=== PATIENT | female | born 1950 | race Caucasian/White ===

== ENCOUNTER 2017-04-19 20:07 | Emergency (ER) | payer MEDICARE, OTHER ==
[~2017-04-19] VITALS: Ht 157.5 cm; Wt 70.0 kg
[~2017-04-19 20:07] MED LIST: ATOR20TA42 PO; CLON.1 PO; LEVE250 PO; LEVEMIR SQ; LISI20 PO; LITH300 PO; LORTA5 PO; NOVOLOGSS SQ; QUET25 PO
[2017-04-19 20:31] VITALS: BP 198/90; PULSE 68; RESP 15; TEMP 98; O2SAT 100
[2017-04-19 20:45] VITALS: BP 222/89; PULSE 75; RESP 18; O2SAT 98
[2017-04-19] MEDS ORDERED: SODIUM CHLORIDE 0.9% FLUSH 5 ML FLUSH IV FLUSH PRN (20:45)
--- NOTE | 2017-04-19 20:52 | PD ---
HPI Chief Complaint: Fall Time Seen by Provider: 20:39 Travel History International Travel<30 days: No Contact w/Intl Traveler<30days: No History of Present Illness HPI Patient is a 66-year-old female presenting to the emergency department for evaluation after being found on the floor by her family. Patient is reporting a headache and pain in the back of her head. She denies any other complaints however she reportedly has the mentation of a 14-year-old per EMS. Patient does not remember if she fell or how she got on the floor. She denies any neck pain, back pain, abdominal pain, chest pain. She states that "she doesn't feel good". PFSH Past Medical History Bipolar Disorder: Yes Cancer: No Diabetes: Yes Diminished Hearing: No Gastrointestinal Disorders: No Genitourinary: No Headaches: No Hypertension: Yes Musculoskeletal: No Neurologic: Yes Psychiatric: Yes (BiPolar Disorder) Reproductive: No Respiratory: No Immunizations Current: Yes (unknown) Migraines: Yes Seizures: Yes Past Surgical History Tonsillectomy: Yes Other Surgery: Yes (SPINAL SURGERY 12 YEARS AGO) Social History Alcohol Use: No Tobacco Use: No Substance Use: No Allergies-Medications (Allergen,Severity, Reaction): Coded Allergies: Aspirin (Verified Allergy, Unknown, 02/02/16) Nonsteroidal Anti-Inflammatory Agts (Verified Allergy, Unknown, Rash, 02/01) MRI PRECAUTION (Verified Adverse Reaction, Severe, ANEURYSM CLIPS IN BRAIN , 02/02/16) 08/10/15 JLA Reported Meds & Prescriptions Reported Meds & Active Scripts Active Prinivil 20 mg (Lisinopril) 20 Mg Tab 20 Mg PO Q12HR Novolog Insulin Supplemental Scale (Insulin Aspart) 100 /Ml Inj 1 Units SQ ACHS SLIDING SCALE 30 Days Levemir (Insulin Detemir) 100 Units/Ml Inj 10 Units SQ HS 30 Days Hydrocodone/Acetaminophen 5 mg/325 mg 1 Tab Tab 1 Tab PO Q6H PRN Lipitor 20 Mg Tab (Atorvastatin) 20 Mg Tab 20 Mg PO HS Reported Quetiapine Fumarate 25 Mg Tab 50 Mg PO HS Catapres 0.1 mg (Clonidine HCl) 0.1 Mg Tab 1 Tab PO BID Keppra (Levetiracetam) 250 Mg Tab 500 Mg PO BID Halbur Carbonate Er (Halbur Carbonate) 300 Mg Tab 300 Mg PO DAILY Review of Systems ROS Limitations: Poor Historian Except as stated in HPI: all other systems reviewed are Neg HENT: Positive: Headaches Physical Exam Narrative GENERAL: Well-developed, well-nourished, alert female. Resting comfortably in no acute distress. SKIN: Warm and dry. HEAD: Atraumatic. Normocephalic. No obvious lesions or abrasions, there is tenderness to palpation over the occipital area EYES: Pupils equal and round. No scleral icterus. No injection or drainage. ENT: No nasal bleeding or discharge. Mucous membranes pink and moist. NECK: Trachea midline. No JVD. CARDIOVASCULAR: Regular rate and rhythm. RESPIRATORY: No accessory muscle use. Clear to auscultation. Breath sounds equal bilaterally. GASTROINTESTINAL: Abdomen soft, non-tender, nondistended. Hepatic and splenic margins not palpable. MUSCULOSKELETAL: Extremities without clubbing, cyanosis, or edema. No obvious deformities. NEUROLOGICAL: Awake and alert. No obvious cranial nerve deficits. Motor grossly within normal limits. Five out of 5 muscle strength in the arms and legs. Normal speech. PSYCHIATRIC: Appropriate mood and affect; insight and judgment impaired. Data Data Last Documented VS Vital Signs Date Time Temp Pulse Resp B/P Pulse Ox O2 Delivery O2 Flow Rate FiO2 04/19/17 21:02 65 20 164/80 98 Room Air 04/19/17 20:31 98.0 Orders Electrocardiogram (04/19/17 20:36) Complete Blood Count With Diff (04/19/17 20:36) Comprehensive Metabolic Panel (04/19/17 20:36) Prothrombin Time / Inr (Pt) (04/19/17 20:36) Act Partial Throm Time (Ptt) (04/19/17 20:36) Urinalysis - C+S If Indicated (04/19/17 20:36) Ct Brain W/O Iv Contrast(Rout) (04/19/17 20:36) Blood Glucose (04/19/17 20:36) Ecg Monitoring (04/19/17 20:36) Iv Access Insert/Monitor (04/19/17 20:36) Cath For Specimen (04/19/17 20:36) Oximetry (04/19/17 20:36) Sodium Chloride 0.9% Flush (Ns Flush) (04/19/17 20:45) Acetaminophen (Tylenol) (04/19/17 22:15) Sodium Chlor 0.9% 1000 Ml Inj (Ns 1000 M (04/19/17 22:30) Labs Laboratory Tests Test 04/19/17 04/19/17 20:45 20:50 White Blood Count 9.2 TH/MM3 Red Blood Count 3.86 MIL/MM3 Hemoglobin 11.9 GM/DL Hematocrit 34.4 % Mean Corpuscular Volume 89.3 FL Mean Corpuscular Hemoglobin 30.9 PG Mean Corpuscular Hemoglobin 34.6 % Concent Red Cell Distribution Width 13.1 % Platelet Count 278 TH/MM3 Mean Platelet Volume 9.3 FL Neutrophils (%) (Auto) 43.3 % Lymphocytes (%) (Auto) 45.2 % Monocytes (%) (Auto) 6.1 % Eosinophils (%) (Auto) 4.0 % Basophils (%) (Auto) 1.4 % Neutrophils # (Auto) 4.0 TH/MM3 Lymphocytes # (Auto) 4.2 TH/MM3 Monocytes # (Auto) 0.6 TH/MM3 Eosinophils # (Auto) 0.4 TH/MM3 Basophils # (Auto) 0.1 TH/MM3 CBC Comment DIFF FINAL Differential Comment Prothrombin Time 10.3 SEC Prothromb Time International 0.9 RATIO Ratio Activated Partial 27.5 SEC Thromboplast Time Sodium Level 138 MEQ/L Potassium Level 4.0 MEQ/L Chloride Level 104 MEQ/L Carbon Dioxide Level 24.2 MEQ/L Anion Gap 10 MEQ/L Blood Urea Nitrogen 29 MG/DL Creatinine 1.16 MG/DL Estimat Glomerular Filtration 47 ML/MIN Rate Random Glucose 117 MG/DL Calcium Level 9.3 MG/DL Total Bilirubin 0.5 MG/DL Aspartate Amino Transf 23 U/L (AST/SGOT) Alanine Aminotransferase 18 U/L (ALT/SGPT) Alkaline Phosphatase 106 U/L Total Protein 8.8 GM/DL Albumin 4.0 GM/DL Urine Color YELLOW Urine Turbidity CLEAR Urine pH 5.5 Urine Specific [place] 1.020 Urine Protein TRACE mg/dL Urine Glucose (UA) NEG mg/dL Urine Ketones 10 mg/dL Urine Occult Blood NEG Urine Nitrite NEG Urine Bilirubin NEG Urine Urobilinogen LESS THAN 2.0 MG/DL Urine Leukocyte Esterase NEG Urine RBC 2 /hpf Urine WBC 2 /hpf Microscopic Urinalysis Comment CATH-CULT NOT IND MDM Medical Decision Making Medical Screen Exam Complete: Yes Emergency Medical Condition: Yes Medical Record Reviewed: Yes Interpretation(s) Last Impressions Head CT 04/19/172035 Signed Impressions: Service Date/Time: Wednesday, April 19, 2017 21:28 - CONCLUSION: No acute findings. Luther Nath MD Laboratory Tests Test 04/19/17 04/19/17 20:45 20:50 White Blood Count 9.2 TH/MM3 Red Blood Count 3.86 MIL/MM3 Hemoglobin 11.9 GM/DL Hematocrit 34.4 % Mean Corpuscular Volume 89.3 FL Mean Corpuscular Hemoglobin 30.9 PG Mean Corpuscular Hemoglobin 34.6 % Concent Red Cell Distribution Width 13.1 % Platelet Count 278 TH/MM3 Mean Platelet Volume 9.3 FL Neutrophils (%) (Auto) 43.3 % Lymphocytes (%) (Auto) 45.2 % Monocytes (%) (Auto) 6.1 % Eosinophils (%) (Auto) 4.0 % Basophils (%) (Auto) 1.4 % Neutrophils # (Auto) 4.0 TH/MM3 Lymphocytes # (Auto) 4.2 TH/MM3 Monocytes # (Auto) 0.6 TH/MM3 Eosinophils # (Auto) 0.4 TH/MM3 Basophils # (Auto) 0.1 TH/MM3 CBC Comment DIFF FINAL Differential Comment Prothrombin Time 10.3 SEC Prothromb Time International 0.9 RATIO Ratio Activated Partial 27.5 SEC Thromboplast Time Sodium Level 138 MEQ/L Potassium Level 4.0 MEQ/L Chloride Level 104 MEQ/L Carbon Dioxide Level 24.2 MEQ/L Anion Gap 10 MEQ/L Blood Urea Nitrogen 29 MG/DL Creatinine 1.16 MG/DL Estimat Glomerular Filtration 47 ML/MIN Rate Random Glucose 117 MG/DL Calcium Level 9.3 MG/DL Total Bilirubin 0.5 MG/DL Aspartate Amino Transf 23 U/L (AST/SGOT) Alanine Aminotransferase 18 U/L (ALT/SGPT) Alkaline Phosphatase 106 U/L Total Protein 8.8 GM/DL Albumin 4.0 GM/DL Urine Color YELLOW Urine Turbidity CLEAR Urine pH 5.5 Urine Specific [place] 1.020 Urine Protein TRACE mg/dL Urine Glucose (UA) NEG mg/dL Urine Ketones 10 mg/dL Urine Occult Blood NEG Urine Nitrite NEG Urine Bilirubin NEG Urine Urobilinogen LESS THAN 2.0 MG/DL Urine Leukocyte Esterase NEG Urine RBC 2 /hpf Urine WBC 2 /hpf Microscopic Urinalysis Comment CATH-CULT NOT IND Vital Signs Date Time Temp Pulse Resp B/P Pulse Ox O2 Delivery O2 Flow Rate FiO2 04/19/17 21:02 65 20 164/80 98 Room Air 04/19/17 20:52 98 Room Air 04/19/17 20:45 75 18 222/89 98 Room Air 04/19/17 20:31 98.0 68 15 198/90 100 Differential Diagnosis UTI versus contusion versus hemorrhage versus metabolic abnormality versus other Narrative Course Patient is a 66-year-old female presenting to the emergency department for evaluation after being found on the floor likely unwitnessed fall. She is complaining of a headache and head pain. She is alert, she appears to be at her baseline mentation. No meningeal signs. Labs and imaging ordered and pending. Initial EKG shows sinus rhythm with a rate of 60 CT of the brain shows no acute abnormality CMP- BUN and creatinine 29/1.16 Coags are unremarkable Urinalysis is unremarkable Acetaminophen ordered for headache, 1 L IV fluids ordered. Pt will be discharged home. She is to follow up with PCP. Pt to return to the ED for any new or worsening symptoms. Discussed with RN. Diagnosis Primary Impression: Fall Qualified Code: W19.XXXA - Fall, initial encounter Additional Impression: Headache Qualified Code: R51 - Nonintractable headache, unspecified chronicity pattern , unspecified headache type Referrals: Primary Care Physician 1 day Patient Instructions: Acute Headache (ED), Fall Prevention (ED), General Instructions Additional Instructions: Increase fluid intake Follow up with primary doctor Return to the Emergency Department for any new or worsening symptoms Med/Other Pt SpecificInfo: No Change to Meds Disposition: 01 DISCHARGE HOME Condition: Stable Reena Avelar Apr 19, 2017 20:52
[2017-04-19 21:02] VITALS: BP 164/80; PULSE 65; RESP 20; O2SAT 98
[2017-04-19 21:02] LABS: BLOOD, URINE NEG (NEG); GLUCOSE,URINE NEG (NEG); KETONE, URINE 10 mg/dL (NEG); NITRITE,URINE NEG (NEG); PH, URINE 5.5 (5.0-8.5); URINE COLOR YELLOW (YELLW/STRAW)
[2017-04-19 21:09] LABS: COMMENT (UR) CATH-CULT NOT IND; CULTURE IF INDICATED CATH CULTURE NOT IND
[2017-04-19 21:11] LABS: BASOPHIL # 0.1 TH/MM3 (0-0.2); BASOPHIL % 1.4 % (0.0-2.0); EOSINOPHIL # 0.4 TH/MM3 (0-0.4); HEMATOCRIT 34.4 % (35.0-46.0); HEMO FLAGS DIFF FINAL; LYMPH % 45.2 % (9.0-44.0); LYMPHOCYTE # 4.2 TH/MM3 (1.0-4.8); MEAN CELL VOLUME 89.3 FL (80.0-100.0); MEAN CORPUSCULAR HEMOGLOBIN 30.9 PG (27.0-34.0); MEAN CORPUSCULAR HGB CONC 34.6 % (32.0-36.0); MONO % 6.1 % (0.0-8.0); NEUT % 43.3 % (16.0-70.0); PLATELET COUNT 278 TH/MM3 (150-450); RED BLOOD COUNT 3.86 MIL/MM3 (4.00-5.30); RED CELL DISTRIBUTION WIDTH 13.1 % (11.6-17.2); WHITE BLOOD COUNT 9.2 TH/MM3 (4.0-11.0)
[2017-04-19 21:18] LABS: APTT (PATIENT) 27.5 SEC (24.3-30.1); INTERNATIONAL NORMALIZED RATIO 0.9 RATIO; PROTHROMBIN TIME - PATIENT 10.3 SEC (9.8-11.6)
[2017-04-19 21:46] LABS: ALKALINE PHOSPHATASE 106 U/L (45-117); TOTAL BILIRUBIN ADULT 0.5 MG/DL (0.2-1.0)
[2017-04-19 21:54] LABS: ALT (GPT) 18 U/L (10-53); ANION GAP 10 MEQ/L (5-15); AST (GOT) 23 U/L (15-37); BICARBONATE 24.2 MEQ/L (21.0-32.0); BLOOD UREA NITROGEN 29 MG/DL (7-18); CHLORIDE 104 MEQ/L (98-107); GLOMERULAR FILTRATION RATE 47 ML/MIN (>89); SODIUM (NA) 138 MEQ/L (136-145)
--- NOTE | 2017-04-19 22:06 | RADRPT ---
EXAM DATE/TIME: 04/19/2017 21:28 [facility] COMPARISON: CT BRAIN W/O CONTRAST, August 10, 2015, 18:25. INDICATIONS : Headaches with alter mental status. RADIATION DOSE: 56.35 CTDIvol (mGy) MEDICAL HISTORY : Hypertension. Aneurysm, intracranial. Epilepsy SURGICAL HISTORY : Craniotomy. ENCOUNTER: Initial ACUITY: 1 day PAIN SCALE: 5/10 LOCATION: cranial TECHNIQUE: Multiple contiguous axial images were obtained of the head. Using automated exposure control and adj ustment of the mA and/or kV according to patient size, radiation dose was kept as low as reasonably a chievable to obtain optimal diagnostic quality images. DICOM format image data is available electro nically for review and comparison. FINDINGS: CEREBRUM: The ventricles are normal for age. No evidence of midline shift, mass lesion, hemorrhage or acute in farction. Stable hypodensity in the left mid convexity frontal region adjacent to the anterior crani otomy defect. No extra-axial fluid collections are seen. The metallic artifact from aneurysm clip in the left supraclinoid region. POSTERIOR FOSSA: The cerebellum and brainstem are intact. The 4th ventricle is midline. The cerebellopontine angle i s unremarkable. EXTRACRANIAL: The visualized portion of the orbits is intact. SKULL: Good approximation of the left craniotomy flap, stable in configuration from prior. CONCLUSION: No acute findings. Luther Nath MD on April 19, 2017 at 22:02 Board Certified Radiologist. This report was verified electronically.
[2017-04-19] MEDS ORDERED: ACETAMINOPHEN 325 MG TAB PO ONE (22:15)
[2017-04-19] MEDS ORDERED: SODIUM CHLOR 0.9% 1000 ML INJ 1,000 ML IV ONE (22:30)
[2017-04-19 22:33] VITALS: BP 134/60; PULSE 63; RESP 16; O2SAT 98
--- NOTE | 2017-04-20 09:15 | EKG ---
Date Performed: 04/19/2017 Time Performed: 21:18:17 PTAGE: 66 years EKG: Sinus rhythm NORMAL ECG PREVIOUS TRACING : 08/10/2015 18.02 DOCTOR: Toby Hernandez Interpretating Date/Time 04/20/2017 09:14:05
== END 2017-04-20 00:25 | disposition home or self-care (01) ==
LOC: NEPE 20:07
DX: R51 Headache (principal); E11.9 Type 2 diabetes mellitus without complications; I10 Essential (primary) hypertension; Z79.4 Long term (current) use of insulin; Z86.59 Personal history of other mental and behavioral disorders; Z86.69 Personal history of other diseases of the nervous system and sense organs; W19.XXXA Unspecified fall, initial encounter
CPT/HCPCS: 70450; 80053; 81001; 85025; 85610; 85730; 93005; 99285; J7030; P9612

== ENCOUNTER 2017-04-30 10:54 | Emergency (ER) | payer OTHER ==
[~2017-04-30] VITALS: Ht 167.6 cm; Wt 70.0 kg
[2017-04-30 11:22] VITALS: BP 121/65; PULSE 65; RESP 16; TEMP 98.2; O2SAT 95
--- NOTE | 2017-04-30 11:31 | PD ---
HPI Chief Complaint: Syncope/Near-Syncope Time Seen by Provider: 11:17 Travel History International Travel<30 days: No Contact w/Intl Traveler<30days: No Traveled to known affect area: No History of Present Illness HPI The patient was seen and examined in the presence of the nurse. This patient was taking her pet to get vaccinated and became dizzy and lightheaded. She lost her balance and fell. No syncope. She denies losing consciousness or having had or neck injury or pain. At this point she feels like some general malaise. No chest pain. Symptoms severity is moderate. No alleviating factors. Duration 10 minutes PFSH Past Medical History Bipolar Disorder: Yes Cancer: No Cardiovascular Problems: Yes Diabetes: Yes Diminished Hearing: No Gastrointestinal Disorders: No Genitourinary: No Headaches: Yes Hypertension: Yes Musculoskeletal: No Neurologic: Yes Psychiatric: Yes (BiPolar Disorder) Reproductive: No Respiratory: No Immunizations Current: Yes (unknown) Migraines: Yes Seizures: Yes Past Surgical History Tonsillectomy: Yes Other Surgery: Yes (SPINAL SURGERY 12 YEARS AGO) Social History Alcohol Use: No Tobacco Use: No Substance Use: No Allergies-Medications (Allergen,Severity, Reaction): Coded Allergies: Aspirin (Verified Allergy, Unknown, 02/02/16) Nonsteroidal Anti-Inflammatory Agts (Verified Allergy, Unknown, Rash, 02/01) MRI PRECAUTION (Verified Adverse Reaction, Severe, ANEURYSM CLIPS IN BRAIN , 02/02/16) 08/10/15 JLA Reported Meds & Prescriptions Reported Meds & Active Scripts Active Prinivil 20 mg (Lisinopril) 20 Mg Tab 20 Mg PO Q12HR Novolog Insulin Supplemental Scale (Insulin Aspart) 100 /Ml Inj 1 Units SQ ACHS SLIDING SCALE 30 Days Levemir (Insulin Detemir) 100 Units/Ml Inj 10 Units SQ HS 30 Days Hydrocodone/Acetaminophen 5 mg/325 mg 1 Tab Tab 1 Tab PO Q6H PRN Lipitor 20 Mg Tab (Atorvastatin) 20 Mg Tab 20 Mg PO HS Reported Quetiapine Fumarate 25 Mg Tab 50 Mg PO HS Catapres 0.1 mg (Clonidine HCl) 0.1 Mg Tab 1 Tab PO BID Keppra (Levetiracetam) 250 Mg Tab 500 Mg PO BID [place] Carbonate Er (Escobares Carbonate) 300 Mg Tab 300 Mg PO DAILY Review of Systems General / Constitutional: No: Fever Eyes: No: Visual changes HENT: Positive: Lightheadedness, No: Headaches Cardiovascular: No: Chest Pain or Discomfort Respiratory: No: Shortness of Breath Gastrointestinal: No: Abdominal Pain Genitourinary: No: Dysuria Musculoskeletal: Positive: Weakness, No: Pain Skin: No Rash Neurologic: Positive: Weakness, Dizziness Psychiatric: No: Depression Endocrine: No: Polydipsia Hematologic/Lymphatic: No: Easy Bruising Physical Exam Narrative GENERAL: Well-nourished, well-developed patient in no apparent distress. SKIN: Focused skin assessment reveals no rash and nodules. Skin is Warm and dry. HEAD: Atraumatic. Normocephalic. EYES: Pupils equal and round. No scleral icterus. No injection or drainage. ENT: No nasal bleeding or discharge. Mucous membranes pink and moist. NECK: Trachea midline. No JVD. CARDIOVASCULAR: Regular rate and rhythm. No murmur appreciated. RESPIRATORY: No accessory muscle use. Clear to auscultation. Breath sounds equal bilaterally. GASTROINTESTINAL: Abdomen soft, non-tender, nondistended. Hepatic and splenic margins not palpable. MUSCULOSKELETAL: No obvious deformities. No clubbing. No cyanosis. No edema. NEUROLOGICAL: Awake and alert. No obvious cranial nerve deficits. Motor grossly within normal limits. Normal speech. PSYCHIATRIC: Appropriate mood and affect; insight and judgment normal. Data Data Last Documented VS Vital Signs Date Time Temp Pulse Resp B/P Pulse Ox O2 Delivery O2 Flow Rate FiO2 04/30/17 11:34 16 98 Room Air 04/30/17 11:22 98.2 65 121/65 Orders Electrocardiogram (04/30/17 ) Iv Access Insert/Monitor (04/30/17 11:28) Complete Blood Count With Diff (04/30/17 11:28) Basic Metabolic Panel (Bmp) (04/30/17 11:28) Labs Laboratory Tests Test 04/30/17 11:30 White Blood Count 7.2 TH/MM3 Red Blood Count 3.59 MIL/MM3 Hemoglobin 11.0 GM/DL Hematocrit 32.9 % Mean Corpuscular Volume 91.6 FL Mean Corpuscular Hemoglobin 30.7 PG Mean Corpuscular Hemoglobin 33.5 % Concent Red Cell Distribution Width 13.2 % Platelet Count 227 TH/MM3 Mean Platelet Volume 9.2 FL Neutrophils (%) (Auto) 53.5 % Lymphocytes (%) (Auto) 34.7 % Monocytes (%) (Auto) 8.2 % Eosinophils (%) (Auto) 2.5 % Basophils (%) (Auto) 1.1 % Neutrophils # (Auto) 3.9 TH/MM3 Lymphocytes # (Auto) 2.5 TH/MM3 Monocytes # (Auto) 0.6 TH/MM3 Eosinophils # (Auto) 0.2 TH/MM3 Basophils # (Auto) 0.1 TH/MM3 CBC Comment DIFF FINAL Differential Comment Sodium Level 143 MEQ/L Potassium Level 3.9 MEQ/L Chloride Level 108 MEQ/L Carbon Dioxide Level 24.6 MEQ/L Anion Gap 10 MEQ/L Blood Urea Nitrogen 25 MG/DL Creatinine 1.32 MG/DL Estimat Glomerular Filtration 41 ML/MIN Rate Random Glucose 138 MG/DL Calcium Level 8.7 MG/DL [facility] Medical Decision Making Medical Screen Exam Complete: Yes Emergency Medical Condition: Yes Medical Record Reviewed: Yes Differential Diagnosis Cardiac arrhythmia, vasovagal episode, electrolyte abnormality Narrative Course I have reviewed the patient's electronic medical record. Patient was seen here 11 days ago with fall had extensive workup which was negative IV placed CBC is normal Metabolic profile shows minimal renal insufficiency Extended cardiac monitoring reveals sinus rhythm without ectopy I reviewed her EKG which shows sinus rhythm without ectopy or ST elevation On reassessment she is feeling well No indication for emergent imaging Vital signs are normal Patient does have a walker but she declines to use it. She did not have it when she fell. I encouraged her to use it until she can discuss with her physician at least Diagnosis Primary Impression: Fall Qualified Code: W19.XXXA - Fall, initial encounter Additional Impressions: Ataxia Generalized weakness Additional Instructions: Use walker The patient was advised to follow up with their physician and return if they worsen. Med/Other Pt SpecificInfo: Other Disposition: 01 DISCHARGE HOME Condition: Stable Filiberto Franics MD Apr 30, 2017 11:31
[2017-04-30 11:54] LABS: AUTOMATED NEUTROPHIL # 3.9 TH/MM3 (1.8-7.7); BASOPHIL # 0.1 TH/MM3 (0-0.2); BASOPHIL % 1.1 % (0.0-2.0); EOSINOPHIL # 0.2 TH/MM3 (0-0.4); EOSINOPHIL % 2.5 % (0.0-4.0); HEMATOCRIT 32.9 % (35.0-46.0); HEMO FLAGS DIFF FINAL; LYMPH % 34.7 % (9.0-44.0); LYMPHOCYTE # 2.5 TH/MM3 (1.0-4.8); MEAN CELL VOLUME 91.6 FL (80.0-100.0); MEAN CORPUSCULAR HEMOGLOBIN 30.7 PG (27.0-34.0); MEAN CORPUSCULAR HGB CONC 33.5 % (32.0-36.0); MONO % 8.2 % (0.0-8.0); NEUT % 53.5 % (16.0-70.0); PLATELET COUNT 227 TH/MM3 (150-450); RED BLOOD COUNT 3.59 MIL/MM3 (4.00-5.30); RED CELL DISTRIBUTION WIDTH 13.2 % (11.6-17.2); WHITE BLOOD COUNT 7.2 TH/MM3 (4.0-11.0)
[2017-04-30 12:11] LABS: BICARBONATE 24.6 MEQ/L (21.0-32.0); POTASSIUM 3.9 MEQ/L (3.5-5.1)
--- NOTE | 2017-05-01 12:27 | EKG ---
Date Performed: 04/30/2017 Time Performed: 11:11:44 PTAGE: 66 years EKG: Sinus rhythm NONSPECIFIC ST & T-WAVE ABNORMALITY BORDERLINE ECG PREVIOUS TRACING : 04/19/2017 21.18 Compared to prior tracing no significant change DOCTOR: Lee Bradford Interpretating Date/Time 05/01/2017 12:23:52
== END 2017-04-30 13:14 | disposition home or self-care (01) ==
LOC: NEPE 10:54
DX: R27.0 Ataxia, unspecified (principal); R53.1 Weakness; R42 Dizziness and giddiness; F31.9 Bipolar disorder, unspecified; E11.9 Type 2 diabetes mellitus without complications; I10 Essential (primary) hypertension; R56.9 Unspecified convulsions; R94.31 Abnormal electrocardiogram [ECG] [EKG]; Z79.4 Long term (current) use of insulin
CPT/HCPCS: 80048; 85025; 93005; 99284

== ENCOUNTER 2017-10-29 07:41 | Emergency (ER) | payer OTHER ==
[2017-10-29] VITALS (9 sets, daily range): BP systolic 106–165; BP diastolic 53–82; PULSE 59–68; RESP 17–22; TEMP 98; O2SAT 98–100
[~2017-10-29] VITALS: Ht 157.5 cm; Wt 64.5 kg
[2017-10-29] MEDS ORDERED: SODIUM CHLOR 0.9% 1000 ML INJ 1,000 ML IV SCH (07:49)
--- NOTE | 2017-10-29 07:58 | PD ---
HPI Chief Complaint: Altered Mental Status Time Seen by Provider: 07:49 Travel History International Travel<30 days: No Contact w/Intl Traveler<30days: No Traveled to known affect area: No History of Present Illness HPI The patient is a 67-year-old female who presents to the emergency department via EMS for altered mental status. According to EMS the patient walks to [facility] every day, approximately one mile from her house, and when she walked to [facility] earlier today she appeared to be altered. According to EMS the patient was noted to be acting differently, pale, diaphoretic, and hard to arouse. When EMS arrived the patient was awake, somewhat lethargic, but no obvious postictal state. The patient's blood sugar was noted to be in the 200s. Upon arrival the patient does complain of feeling weak, is unsure if she had any loss of consciousness while at [facility]. She does complain of generalized weakness and malaise. She does have a history of seizure disorder, does not know her medication. She does state they recently increased her dose of seizure medication 2 months ago. She complains of chronic right sided weakness and numbness, states is secondary to her previous seizures. She denies any acute change in the weakness on the right side. She does state she was dizzy when ambulating and felt like she was walking "drawn". She denies any chest pain, shortness breath, nausea, vomiting, or abdominal pain. Symptoms are moderate. PFSH Past Medical History Bipolar Disorder: Yes Cancer: No Cardiovascular Problems: Yes Diabetes: Yes Diminished Hearing: No Gastrointestinal Disorders: No Genitourinary: No Headaches: Yes Hypertension: Yes Musculoskeletal: No Neurologic: Yes Psychiatric: Yes Reproductive: No Respiratory: No Immunizations Current: Yes (unknown) Migraines: Yes Seizures: Yes Past Surgical History Neurologic Surgery: Yes (BACK SURGERY) Tonsillectomy: Yes Other Surgery: Yes (SPINAL SURGERY 12 YEARS AGO) Social History Alcohol Use: No Tobacco Use: No Substance Use: No Allergies-Medications (Allergen,Severity, Reaction): Coded Allergies: aspirin (Unverified Allergy, Unknown, 10/29/17) diclofenac (Unverified Allergy, Unknown, Rash, 10/29/17) etodolac (Unverified Allergy, Unknown, Rash, 10/29/17) flurbiprofen (Unverified Allergy, Unknown, Rash, 10/29/17) ibuprofen (Unverified Allergy, Unknown, Rash, 10/29/17) indomethacin (Unverified Allergy, Unknown, Rash, 10/29/17) ketoprofen (Unverified Allergy, Unknown, Rash, 10/29/17) ketorolac (Unverified Allergy, Unknown, Rash, 10/29/17) naproxen (Unverified Allergy, Unknown, Rash, 10/29/17) oxaprozin (Unverified Allergy, Unknown, Rash, 10/29/17) MRI PRECAUTION (Verified Adverse Reaction, Severe, ANEURYSM CLIPS IN BRAIN , 10/29/17) 08/10/15 JLA Reported Meds & Prescriptions Reported Meds & Active Scripts Active Reported Seroquel (Quetiapine Fumarate) 50 Mg Tab 50 Mg PO DIRECTED Dragoon Carbonate 300 Mg Cap 300 Mg PO DAILY Hydrocodone-Acetaminophen 5-325 mg Tab 1 Tab PO Q6H PRN Lipitor (Atorvastatin Calcium) 20 Mg Tab 20 Mg PO HS [Diabetes Medication] Mg PO DAILY Lisinopril 20 Mg Tab 20 Mg PO Q12HR Keppra (Levetiracetam) 500 Mg Tab 500 Mg PO BID Clonidine (Clonidine HCl) 0.1 Mg Tab 0.1 Mg PO BID Review of Systems Except as stated in HPI: all other systems reviewed are Neg General / Constitutional: No: Fever Eyes: No: Blurred Vision HENT: Positive: Lightheadedness Cardiovascular: No: Chest Pain or Discomfort Respiratory: No: Shortness of Breath Gastrointestinal: No: Nausea, Vomiting, Diarrhea, Abdominal Pain Genitourinary: No: Dysuria Musculoskeletal: Positive: Weakness Neurologic: Positive: Dizziness Psychiatric: Positive: Mood Disorder Physical Exam Narrative GENERAL: Awake, alert, 67-year-old female appears her stated age and is in no acute respiratory distress. SKIN: Focused skin assessment warm/dry. HEAD: Atraumatic. Normocephalic. EYES: Pupils equal and round. 2 mm bilateral and reactive. EOMs are intact. Difficulty seeing fingers at a distance of 2 feet. Mild pallor of the lower conjunctiva. ENT: No nasal bleeding or discharge. Upper dentures in place. NECK: Trachea midline. No JVD. CARDIOVASCULAR: Regular rate and rhythm. No murmur appreciated. RESPIRATORY: No accessory muscle use. Clear to auscultation. Breath sounds equal bilaterally. GASTROINTESTINAL: Abdomen soft, non-tender, nondistended. No rebound tenderness. MUSCULOSKELETAL: No obvious deformities. No clubbing. No cyanosis. No edema. NEUROLOGICAL: Awake and alert. No obvious cranial nerve deficits. No obvious dysarthria. Mild drift to the right arm and right leg, patient states that is chronic. Mildly decreased sensation to the right side of face, right arm, and right leg, patient states that is chronic. She is oriented to person, date of , and location. Does not know the current month, year, and states the president of [employer] is [place]. PSYCHIATRIC: Flat affect. Data Data Last Documented VS Vital Signs Date Time Temp Pulse Resp B/P (MAP) Pulse Ox O2 Delivery O2 Flow Rate FiO2 10/29/17 09:17 59 17 150/68 (95) 100 Room Air 10/29/17 07:49 98.0 Orders Orders Electrocardiogram (10/29/17 07:49) Ammonia (10/29/17 07:49) Complete Blood Count With Diff (10/29/17 07:49) Comprehensive Metabolic Panel (10/29/17 07:49) Creatine Kinase (Cpk) (10/29/17 07:49) Prothrombin Time / Inr (Pt) (10/29/17 07:49) Act Partial Throm Time (Ptt) (10/29/17 07:49) Troponin I (10/29/17 07:49) Thyroid Stimulating Hormone (10/29/17 07:49) Urinalysis - C+S If Indicated (10/29/17 07:49) Ct Brain W/O Iv Contrast(Rout) (10/29/17 07:49) Blood Glucose (10/29/17 07:49) Ecg Monitoring (10/29/17 07:49) Iv Access Insert/Monitor (10/29/17 07:49) Oximetry (10/29/17 07:49) Sodium Chloride 0.9% Flush (Ns Flush) (10/29/17 08:00) Sodium Chlor 0.9% 1000 Ml Inj (Ns 1000 M (10/29/17 07:49) Drug Screen, Random Urine (10/29/17 07:49) Alcohol (Ethanol) (10/29/17 07:49) Dragoon (Li) (10/29/17 07:49) Orthostatic Vital Signs (10/29/17 07:49) Sodium Chlorid 0.9% 500 Ml Inj (Ns 500 M (10/29/17 09:15) Urine Culture (10/29/17 09:10) Ciprofloxacin 400 Mg Premix (Cipro 400 M (10/29/17 10:00) Ed Discharge Order (10/29/17 09:59) Labs Laboratory Tests Test 10/29/17 07:50 10/29/17 09:10 White Blood Count 7.1 TH/MM3 Red Blood Count 3.78 MIL/MM3 Hemoglobin 11.7 GM/DL Hematocrit 33.4 % Mean Corpuscular Volume 88.6 FL Mean Corpuscular Hemoglobin 30.9 PG Mean Corpuscular Hemoglobin Concent 34.9 % Red Cell Distribution Width 12.5 % Platelet Count 206 TH/MM3 Mean Platelet Volume 9.0 FL Neutrophils (%) (Auto) 53.1 % Lymphocytes (%) (Auto) 35.3 % Monocytes (%) (Auto) 6.5 % Eosinophils (%) (Auto) 3.5 % Basophils (%) (Auto) 1.6 % Neutrophils # (Auto) 3.8 TH/MM3 Lymphocytes # (Auto) 2.5 TH/MM3 Monocytes # (Auto) 0.5 TH/MM3 Eosinophils # (Auto) 0.2 TH/MM3 Basophils # (Auto) 0.1 TH/MM3 CBC Comment DIFF FINAL Differential Comment Prothrombin Time 11.1 SEC Prothromb Time International Ratio 1.1 RATIO Activated Partial Thromboplast Time 24.3 SEC Blood Urea Nitrogen 26 MG/DL Creatinine 1.24 MG/DL Random Glucose 260 MG/DL Total Protein 7.6 GM/DL Albumin 3.4 GM/DL Calcium Level 8.2 MG/DL Alkaline Phosphatase 109 U/L Aspartate Amino Transf (AST/SGOT) 19 U/L Alanine Aminotransferase (ALT/SGPT) 13 U/L Total Bilirubin 0.5 MG/DL Sodium Level 139 MEQ/L Potassium Level 3.7 MEQ/L Chloride Level 106 MEQ/L Carbon Dioxide Level 25.7 MEQ/L Anion Gap 7 MEQ/L Estimat Glomerular Filtration Rate 43 ML/MIN Ammonia 32 MCMOL/L Total Creatine Kinase 83 U/L Troponin I LESS THAN 0.02 NG/ML Thyroid Stimulating Hormone 3rd Gen 3.820 uIU/ML Dragoon Level LESS THAN 0.1 MEQ/L Ethyl Alcohol Level LESS THAN 3 MG/DL Urine Color YELLOW Urine Turbidity CLEAR Urine pH 6.5 Urine Specific [place] 1.021 Urine Protein TRACE mg/dL Urine Glucose (UA) 1000 mg/dL Urine Ketones NEG mg/dL Urine Occult Blood NEG Urine Nitrite NEG Urine Bilirubin NEG Urine Urobilinogen LESS THAN 2.0 MG/DL Urine Leukocyte Esterase LARGE Urine RBC LESS THAN 1 /hpf Urine WBC 17 /hpf Urine Squamous Epithelial Cells 1 /hpf Urine Bacteria OCC /hpf Urine Mucus FEW /lpf Microscopic Urinalysis Comment CATH-CULTURE IND [facility] Medical Decision Making Medical Screen Exam Complete: Yes Emergency Medical Condition: Yes Medical Record Reviewed: Yes Interpretation(s) EKG reveals sinus bradycardia with a heart rate of 58. Voltage criteria for LVH. Nonspecific T wave changes. Last Impressions Head CT 10/29/17 0749 Signed Impressions: Service Date/Time: Tuesday, October 29, 2017 08:29 - CONCLUSION: No acute disease. Belle Forde MD Laboratory Tests Test 10/29/17 07:50 10/29/17 09:10 White Blood Count 7.1 TH/MM3 Red Blood Count 3.78 MIL/MM3 Hemoglobin 11.7 GM/DL Hematocrit 33.4 % Mean Corpuscular Volume 88.6 FL Mean Corpuscular Hemoglobin 30.9 PG Mean Corpuscular Hemoglobin Concent 34.9 % Red Cell Distribution Width 12.5 % Platelet Count 206 TH/MM3 Mean Platelet Volume 9.0 FL Neutrophils (%) (Auto) 53.1 % Lymphocytes (%) (Auto) 35.3 % Monocytes (%) (Auto) 6.5 % Eosinophils (%) (Auto) 3.5 % Basophils (%) (Auto) 1.6 % Neutrophils # (Auto) 3.8 TH/MM3 Lymphocytes # (Auto) 2.5 TH/MM3 Monocytes # (Auto) 0.5 TH/MM3 Eosinophils # (Auto) 0.2 TH/MM3 Basophils # (Auto) 0.1 TH/MM3 CBC Comment DIFF FINAL Differential Comment Prothrombin Time 11.1 SEC Prothromb Time International Ratio 1.1 RATIO Activated Partial Thromboplast Time 24.3 SEC Blood Urea Nitrogen 26 MG/DL Creatinine 1.24 MG/DL Random Glucose 260 MG/DL Total Protein 7.6 GM/DL Albumin 3.4 GM/DL Calcium Level 8.2 MG/DL Alkaline Phosphatase 109 U/L Aspartate Amino Transf (AST/SGOT) 19 U/L Alanine Aminotransferase (ALT/SGPT) 13 U/L Total Bilirubin 0.5 MG/DL Sodium Level 139 MEQ/L Potassium Level 3.7 MEQ/L Chloride Level 106 MEQ/L Carbon Dioxide Level 25.7 MEQ/L Anion Gap 7 MEQ/L Estimat Glomerular Filtration Rate 43 ML/MIN Ammonia 32 MCMOL/L Total Creatine Kinase 83 U/L Troponin I LESS THAN 0.02 NG/ML Thyroid Stimulating Hormone 3rd Gen 3.820 uIU/ML Dragoon Level LESS THAN 0.1 MEQ/L Ethyl Alcohol Level LESS THAN 3 MG/DL Urine Color YELLOW Urine Turbidity CLEAR Urine pH 6.5 Urine Specific [place] 1.021 Urine Protein TRACE mg/dL Urine Glucose (UA) 1000 mg/dL Urine Ketones NEG mg/dL Urine Occult Blood NEG Urine Nitrite NEG Urine Bilirubin NEG Urine Urobilinogen LESS THAN 2.0 MG/DL Urine Leukocyte Esterase LARGE Urine RBC LESS THAN 1 /hpf Urine WBC 17 /hpf Urine Squamous Epithelial Cells 1 /hpf Urine Bacteria OCC /hpf Urine Mucus FEW /lpf Microscopic Urinalysis Comment CATH-CULTURE IND Differential Diagnosis Differential diagnosis includes lithium toxicity, near syncope, CVA, TIA, intracranial hemorrhage, hypoglycemia, bipolar affective disorder, seizure with postictal state, hyponatremia, dehydration, arrhythmia. Narrative Course IV was established, labs are drawn and sent, and the patient was placed on cardiac telemetry monitoring and continuous pulse oximetry monitoring. EKG was ordered and interpreted. CT of the brain was obtained. The patient was administered and IV fluids. Orthostatic vital signs were obtained. Dragoon level was sent to lab. Dragoon level is unremarkable. Orthostatic vital signs are normal. CT the brain is negative. He is positive, the patient received Cipro 4 mg intravenously. The patient was reassessed, her blood pressure had improved and her symptoms have improved. The patient be discharged home with Cipro. Diagnosis Primary Impression: Dizziness Additional Impression: UTI (urinary tract infection) Qualified Codes: N30.00 - Acute cystitis without hematuria Patient Instructions: General Instructions Additional Instructions: Please provide the patient a copy of her CT results and lab results at discharge. Follow-up with her primary physician. Medications as directed. Return if symptoms worsen or progress. Plenty of fluids to stay hydrated. Med/Other Pt SpecificInfo: Prescription(s) given Scripts Ciprofloxacin (Cipro) 500 Mg Tab 500 MG PO BID for Infection for 7 Days, #14 TAB 0 Refills Prov: Mauricio Madrid MD 10/29/17 Disposition: 01 DISCHARGE HOME Condition: Stable Mauricio Madrid MD Oct 29, 2017 07:58
[2017-10-29] MEDS: SODIUM CHLORIDE 0.9% FLUSH 10 ML FLUSH IV FLUSH PRN ×2 (08:07→09:12)
[2017-10-29] MEDS ORDERED: SERO50TA PO (08:12)
[2017-10-29] MEDS ORDERED: LIPI20TA PO (08:12)
[2017-10-29] MEDS ORDERED: CLON0.1T PO (08:12)
[2017-10-29] MEDS ORDERED: HYDR-3516 PO (08:12)
[2017-10-29] MEDS ORDERED: LISI-515 PO (08:12)
[2017-10-29] MEDS ORDERED: LEVE500 PO (08:12)
[2017-10-29] MEDS ORDERED: LITH300C2 PO (08:12)
[2017-10-29] MEDS ORDERED: DIABETES MEDICATION PO (08:12)
[2017-10-29 08:18] LABS: AUTOMATED NEUTROPHIL # 3.8 TH/MM3 (1.8-7.7); BASOPHIL # 0.1 TH/MM3 (0-0.2); BASOPHIL % 1.6 % (0.0-2.0); EOSINOPHIL # 0.2 TH/MM3 (0-0.4); EOSINOPHIL % 3.5 % (0.0-4.0); HEMATOCRIT 33.4 % (35.0-46.0); HEMOGLOBIN 11.7 GM/DL (11.6-15.3); LYMPH % 35.3 % (9.0-44.0); LYMPHOCYTE # 2.5 TH/MM3 (1.0-4.8); MEAN CELL VOLUME 88.6 FL (80.0-100.0); MEAN CORPUSCULAR HEMOGLOBIN 30.9 PG (27.0-34.0); MEAN CORPUSCULAR HGB CONC 34.9 % (32.0-36.0); MONO % 6.5 % (0.0-8.0); MONOCYTE # 0.5 TH/MM3 (0-0.9); NEUT % 53.1 % (16.0-70.0); PLATELET COUNT 206 TH/MM3 (150-450); RED BLOOD COUNT 3.78 MIL/MM3 (4.00-5.30); RED CELL DISTRIBUTION WIDTH 12.5 % (11.6-17.2); WHITE BLOOD COUNT 7.1 TH/MM3 (4.0-11.0)
[2017-10-29 08:26] LABS: INTERNATIONAL NORMALIZED RATIO 1.1 RATIO; PROTHROMBIN TIME - PATIENT 11.1 SEC (9.8-11.6)
[2017-10-29 08:39] LABS: ALBUMIN 3.4 GM/DL (3.4-5.0); ALT (GPT) 13 U/L (10-53); AST (GOT) 19 U/L (15-37); BICARBONATE 25.7 MEQ/L (21.0-32.0); BLOOD UREA NITROGEN 26 MG/DL (7-18); CALCIUM 8.2 MG/DL (8.5-10.1); CHLORIDE 106 MEQ/L (98-107); CREATININE 1.24 MG/DL (0.50-1.00); GLOMERULAR FILTRATION RATE 43 ML/MIN (>89); GLUCOSE,RANDOM 260 MG/DL (74-106); SODIUM (NA) 139 MEQ/L (136-145)
--- NOTE | 2017-10-29 08:43 | RADRPT ---
EXAM DATE/TIME: 10/29/2017 08:29 [facility] COMPARISON: CT BRAIN W/O CONTRAST, April 19, 2017, 21:28. INDICATIONS : Dizziness and general weakness today. Posterior cephalgia. RADIATION DOSE: 34.87 CTDIvol (mGy) MEDICAL HISTORY : Seizures. Hypertension. SURGICAL HISTORY : Tonsillectomy. anuerysm clip ENCOUNTER: Initial ACUITY: 1 day PAIN SCALE: 6/10 LOCATION: Bilateral occipital head TECHNIQUE: Multiple contiguous axial images were obtained of the head. Using automated exposure control and adj ustment of the mA and/or kV according to patient size, radiation dose was kept as low as reasonably a chievable to obtain optimal diagnostic quality images. DICOM format image data is available electro nically for review and comparison. FINDINGS: CEREBRUM: The ventricles are normal for age. No evidence of midline shift, mass lesion, hemorrhage or acute in farction. Stable post surgical changes within the left frontal lobe adjacent to the craniotomy defect . A aneurysm clip in the left supraclinoid region. No extra-axial fluid collections are seen. POSTERIOR FOSSA: The cerebellum and brainstem are intact. The 4th ventricle is midline. The cerebellopontine angle i s unremarkable. EXTRACRANIAL: The visualized portion of the orbits is intact. SKULL: Stable postsurgical changes of the left frontoparietal vertex. The sinuses are clear. The orbits are unremarkable. CONCLUSION: No acute disease. Belle Forde MD on October 29, 2017 at 8:38 Board Certified Radiologist. This report was verified electronically.
[2017-10-29 08:46] LABS: ALKALINE PHOSPHATASE 109 U/L (45-117); TOTAL BILIRUBIN ADULT 0.5 MG/DL (0.2-1.0); TOTAL PROTEIN 7.6 GM/DL (6.4-8.2); TROPONIN I LESS THAN 0.02 NG/ML (0.02-0.05)
[2017-10-29] MEDS ORDERED: SODIUM CHLORID 0.9% 500 ML INJ 500 ML IV ONE (09:15)
[2017-10-29 09:41] LABS: BILIRUBIN, URINE NEG (NEG); BLOOD, URINE NEG (NEG); GLUCOSE,URINE 1000 mg/dL (NEG); KETONE, URINE NEG (NEG); MUCUS URINE FEW /lpf (OCC); NITRITE,URINE NEG (NEG); PH, URINE 6.5 (5.0-8.5); URINE COLOR YELLOW (YELLW/STRAW); URINE LEUKOCYTE ESTERASE LARGE (NEG)
[2017-10-29 09:42] LABS: BACTERIA, URINE OCC /hpf; SQUAMOUS EPITHELIAL CELL URINE 1 /hpf (0-5)
[2017-10-29] MEDS ORDERED: CIPROFLOXACIN 400 MG PREMIX 200 ML IV ONE (10:00)
[2017-10-29] MEDS ORDERED: CIPR-9 PO (10:14)
--- NOTE | 2017-10-30 17:45 | EKG ---
Date Performed: 10/29/2017 Time Performed: 08:01:44 PTAGE: 67 years EKG: SINUS BRADYCARDIA MINIMAL VOLTAGE CRITERIA FOR LVH, CONSIDER NORMAL VARIANT NONSPECIFIC T-W AVE ABNORMALITY BORDERLINE ECG PREVIOUS TRACING : 04/30/2017 11.11 Compared to prior tracing, now with LVH criteria DOCTOR: Roderick Thompson Interpretating Date/Time 10/30/2017 17:45:06
== END 2017-10-29 12:34 | disposition home or self-care (01) ==
LOC: NEPE 07:41
DX: R42 Dizziness and giddiness (principal); N30.00 Acute cystitis without hematuria; R00.1 Bradycardia, unspecified; R53.1 Weakness; G40.909 Epilepsy, unspecified, not intractable, without status epilepticus; E11.9 Type 2 diabetes mellitus without complications; I10 Essential (primary) hypertension; F31.9 Bipolar disorder, unspecified; Z79.84 Long term (current) use of oral hypoglycemic drugs
CPT/HCPCS: 70450; 80053; 80178; 80307; 81001; 82140; 82550; 84443; 84484; 85025; 85610; 85730; 87086; 93005; 96361; 96365; 99285; J0744; J7030; J7040

== ENCOUNTER 2017-11-07 11:19 | Emergency (ER) | payer OTHER ==
[~2017-11-07] VITALS: Ht 157.5 cm; Wt 60.0 kg
[~2017-11-07 11:19] MED LIST changes: -ATOR20TA42 PO; +CIPR-9 PO; -CLON.1 PO; +CLON0.1T PO; +DIABETES MEDICATION PO; +HYDR-3516 PO; -LEVE250 PO; +LEVE500 PO; -LEVEMIR SQ; +LIPI20TA PO; +LISI-515 PO; -LISI20 PO; -LITH300 PO; +LITH300C2 PO; -LORTA5 PO; -NOVOLOGSS SQ; -QUET25 PO; +SERO50TA PO
[2017-11-07 11:27] VITALS: BP 123/71; PULSE 78; RESP 18; TEMP 98.4; O2SAT 98
--- NOTE | 2017-11-07 11:37 | PD ---
HPI Chief Complaint: Altered Mental Status Time Seen by Provider: 11:38 Travel History International Travel<30 days: No Contact w/Intl Traveler<30days: No History of Present Illness HPI 67-year-old male female with a history of seizure disorder, right sided weakness , and psych history presents emergency department via [facility] for a fall that occurred just prior to arrival. According to [facility], she was at [facility] when her right leg gave out, falling to the ground. BGL 118 on scene. After discussion with [facility], it appears that patient has multiple episodes of fluctuating mental status that resulted in similar episodes. They believe that she may have had a seizure. Currently, patient states she has a headache. Patient is alert and oriented to self but believes the year is 2011 and does not answer all the questions appropriately. Patient states she does feel weak. Denies fever, chills, chest pain, shortness of breath. Denies urinary symptoms. She thinks she lives at home alone. Patient history is very limited as patient is rather altered and selective in answering questions. PFSH Past Medical History Bipolar Disorder: Yes Cancer: No Cardiovascular Problems: Yes Cerebrovascular Accident: Yes Diabetes: Yes Diminished Hearing: No Gastrointestinal Disorders: No Genitourinary: No Headaches: Yes Hypertension: Yes Musculoskeletal: No Neurologic: Yes Psychiatric: Yes Reproductive: No Respiratory: No Immunizations Current: Yes (unknown) Migraines: Yes Seizures: Yes : 7 Para: 3 Miscarriage: 4 Tubal Ligation: Yes Past Surgical History Neurologic Surgery: Yes (BACK SURGERY) Tonsillectomy: Yes Other Surgery: Yes (SPINAL SURGERY, CYST REMOVED FROM CHIN, BRAIN CLIP) Social History Alcohol Use: No Tobacco Use: No Substance Use: No Allergies-Medications (Allergen,Severity, Reaction): Coded Allergies: aspirin (Unverified Allergy, Unknown, 10/29/17) diclofenac (Unverified Allergy, Unknown, Rash, 10/29/17) etodolac (Unverified Allergy, Unknown, Rash, 10/29/17) flurbiprofen (Unverified Allergy, Unknown, Rash, 10/29/17) ibuprofen (Unverified Allergy, Unknown, Rash, 10/29/17) indomethacin (Unverified Allergy, Unknown, Rash, 10/29/17) ketoprofen (Unverified Allergy, Unknown, Rash, 10/29/17) ketorolac (Unverified Allergy, Unknown, Rash, 10/29/17) naproxen (Unverified Allergy, Unknown, Rash, 10/29/17) oxaprozin (Unverified Allergy, Unknown, Rash, 10/29/17) MRI PRECAUTION (Verified Adverse Reaction, Severe, ANEURYSM CLIPS IN BRAIN , 10/29/17) 08/10/15 JLA Reported Meds & Prescriptions Reported Meds & Active Scripts Active Cipro (Ciprofloxacin HCl) 500 Mg Tab 500 Mg PO BID 7 Days Reported Seroquel (Quetiapine Fumarate) 50 Mg Tab 50 Mg PO DIRECTED [place] Carbonate 300 Mg Cap 300 Mg PO DAILY Hydrocodone-Acetaminophen 5-325 mg Tab 1 Tab PO Q6H PRN Lipitor (Atorvastatin Calcium) 20 Mg Tab 20 Mg PO HS [Diabetes Medication] Mg PO DAILY Lisinopril 20 Mg Tab 20 Mg PO Q12HR Keppra (Levetiracetam) 500 Mg Tab 500 Mg PO BID Clonidine (Clonidine HCl) 0.1 Mg Tab 0.1 Mg PO BID Review of Systems Except as stated in HPI: all other systems reviewed are Neg Physical Exam Narrative GENERAL: WD, WN in NAD SKIN: Focused skin assessment warm/dry. HEAD: Atraumatic. Normocephalic. EYES: Pupils equal and round. No scleral icterus. No injection or drainage. ENT: No nasal bleeding or discharge. Mucous membranes pink and moist. NECK: Trachea midline. No JVD. CARDIOVASCULAR: Regular rate and rhythm. No murmur appreciated. RESPIRATORY: No accessory muscle use. Clear to auscultation. Breath sounds equal bilaterally. GASTROINTESTINAL: Abdomen soft, non-tender, nondistended. MUSCULOSKELETAL: No obvious deformities. No clubbing. No cyanosis. No edema. NEUROLOGICAL: Awake. No obvious cranial nerve deficits. Normal speech. PSYCHIATRIC: Appropriate mood, apparent selective answering of questions Data Data Last Documented VS Vital Signs Date Time Temp Pulse Resp B/P (MAP) Pulse Ox O2 Delivery O2 Flow Rate FiO2 11/07/17 16:30 11/07/17 13:20 67 16 99 Room Air 11/07/17 11:27 98.4 Orders Orders Electrocardiogram (11/07/17 11:33) Ammonia (11/07/17 11:33) Complete Blood Count With Diff (11/07/17 11:33) Comprehensive Metabolic Panel (11/07/17 11:33) Creatine Kinase (Cpk) (11/07/17 11:33) Prothrombin Time / Inr (Pt) (11/07/17 11:33) Troponin I (11/07/17 11:33) Thyroid Stimulating Hormone (11/07/17 11:33) Urinalysis - C+S If Indicated (11/07/17 11:33) Chest, Single Ap (11/07/17 11:33) Ct Brain W/O Iv Contrast(Rout) (11/07/17 11:33) Blood Glucose (11/07/17 11:33) Drug Screen, Random Urine (11/07/17 11:33) Alcohol (Ethanol) (11/07/17 11:33) [place] (Li) (11/07/17 11:38) Urine Culture (11/07/17 13:40) Case Management Consult (11/07/17 ) Ed Discharge Order (11/07/17 16:22) Labs Laboratory Tests Test 11/07/17 11:43 11/07/17 13:29 11/07/17 13:40 White Blood Count 6.0 TH/MM3 Red Blood Count 3.69 MIL/MM3 Hemoglobin 11.2 GM/DL Hematocrit 32.8 % Mean Corpuscular Volume 88.9 FL Mean Corpuscular Hemoglobin 30.4 PG Mean Corpuscular Hemoglobin Concent 34.1 % Red Cell Distribution Width 12.5 % Platelet Count 245 TH/MM3 Mean Platelet Volume 8.8 FL Neutrophils (%) (Auto) 50.6 % Lymphocytes (%) (Auto) 38.1 % Monocytes (%) (Auto) 8.1 % Eosinophils (%) (Auto) 3.0 % Basophils (%) (Auto) 0.2 % Neutrophils # (Auto) 3.0 TH/MM3 Lymphocytes # (Auto) 2.3 TH/MM3 Monocytes # (Auto) 0.5 TH/MM3 Eosinophils # (Auto) 0.2 TH/MM3 Basophils # (Auto) 0.0 TH/MM3 CBC Comment DIFF FINAL Differential Comment Prothrombin Time 11.2 SEC Prothromb Time International Ratio 1.1 RATIO Blood Urea Nitrogen 20 MG/DL Creatinine 1.26 MG/DL Random Glucose 116 MG/DL Total Protein 7.8 GM/DL Albumin 3.5 GM/DL Calcium Level 8.3 MG/DL Alkaline Phosphatase 94 U/L Aspartate Amino Transf (AST/SGOT) 22 U/L Alanine Aminotransferase (ALT/SGPT) 13 U/L Total Bilirubin 0.5 MG/DL Sodium Level 140 MEQ/L Potassium Level 3.8 MEQ/L Chloride Level 107 MEQ/L Carbon Dioxide Level 23.5 MEQ/L Anion Gap 10 MEQ/L Estimat Glomerular Filtration Rate 43 ML/MIN Ammonia 24 MCMOL/L Total Creatine Kinase 105 U/L Troponin I LESS THAN 0.02 NG/ML Thyroid Stimulating Hormone 3rd Gen 0.874 uIU/ML Ethyl Alcohol Level LESS THAN 3 MG/DL [place] Level LESS THAN 0.1 MEQ/L Urine Color YELLOW Urine Turbidity HAZY Urine pH 5.5 Urine Specific [place] 1.025 Urine Protein TRACE mg/dL Urine Glucose (UA) TRACE mg/dL Urine Ketones NEG mg/dL Urine Occult Blood NEG Urine Nitrite NEG Urine Bilirubin NEG Urine Urobilinogen 2.0 MG/DL Urine Leukocyte Esterase LARGE Urine RBC 2 /hpf Urine WBC 7 /hpf Urine Squamous Epithelial Cells 5 /hpf Urine Bacteria RARE /hpf Urine Hyaline Casts 1 /lpf Urine Mucus FEW /lpf Microscopic Urinalysis Comment CATH-CULTURE IND Urine Opiates Screen NEG Urine Barbiturates Screen NEG Urine Amphetamines Screen NEG Urine Benzodiazepines Screen NEG Urine Cocaine Screen NEG Urine Cannabinoids Screen NEG MDM Medical Decision Making Medical Screen Exam Complete: Yes Emergency Medical Condition: Yes Differential Diagnosis CVA, TIA, Seizure, generalized weakness Narrative Course 67-year-old male female with a history of seizure disorder, right sided weakness , and psych history presents emergency department via [facility] for a fall that occurred just prior to arrival. According to [facility], she was at [facility] when her right leg gave out, falling to the ground. BGL 118 on scene. After discussion with [facility], it appears that patient has multiple episodes of fluctuating mental status that resulted in similar episodes. They believe that she may have had a seizure. Currently, patient states she has a headache. Patient is alert and oriented to self but believes the year is 2011 and does not answer all the questions appropriately. Patient states she does feel weak. Denies fever, chills, chest pain, shortness of breath. Denies urinary symptoms. She thinks she lives at home alone. Patient does not know history is very limited as patient is rather altered and selective in answering questions. Vital signs stable. Physical exam findings consistent with a well-developed well-nourished appearing stated age, 67-year-old female no acute distress. Right upper and lower extremities grade4-5/5 compared to right which is normal for her. I spoke with the nurses regarding her answers to my questions. It appears that patient is able to answer some questions appropriately but others not. Suspect that there may be a malingering component to her condition at this point. I suspect that patient does not follow up with her primary care physician and does not take her medications as prescribed. Patient may have had a seizure based off of this information. Throughout the emergency department visit, patient was able to get more information to the nurse, Piotr. States that she does follow psychiatry for her lithium prescription and levels. States today she was angry at her friend Kathy and she started walking fast then felt dizzy and fell to the ground. Patient is apparently back to her baseline after observation in the ED today. Laboratory Tests Test 11/07/17 11:43 11/07/17 13:29 11/07/17 13:40 White Blood Count 6.0 TH/MM3 Red Blood Count 3.69 MIL/MM3 Hemoglobin 11.2 GM/DL Hematocrit 32.8 % Mean Corpuscular Volume 88.9 FL Mean Corpuscular Hemoglobin 30.4 PG Mean Corpuscular Hemoglobin Concent 34.1 % Red Cell Distribution Width 12.5 % Platelet Count 245 TH/MM3 Mean Platelet Volume 8.8 FL Neutrophils (%) (Auto) 50.6 % Lymphocytes (%) (Auto) 38.1 % Monocytes (%) (Auto) 8.1 % Eosinophils (%) (Auto) 3.0 % Basophils (%) (Auto) 0.2 % Neutrophils # (Auto) 3.0 TH/MM3 Lymphocytes # (Auto) 2.3 TH/MM3 Monocytes # (Auto) 0.5 TH/MM3 Eosinophils # (Auto) 0.2 TH/MM3 Basophils # (Auto) 0.0 TH/MM3 CBC Comment DIFF FINAL Differential Comment Prothrombin Time 11.2 SEC Prothromb Time International Ratio 1.1 RATIO Blood Urea Nitrogen 20 MG/DL Creatinine 1.26 MG/DL Random Glucose 116 MG/DL Total Protein 7.8 GM/DL Albumin 3.5 GM/DL Calcium Level 8.3 MG/DL Alkaline Phosphatase 94 U/L Aspartate Amino Transf (AST/SGOT) 22 U/L Alanine Aminotransferase (ALT/SGPT) 13 U/L Total Bilirubin 0.5 MG/DL Sodium Level 140 MEQ/L Potassium Level 3.8 MEQ/L Chloride Level 107 MEQ/L Carbon Dioxide Level 23.5 MEQ/L Anion Gap 10 MEQ/L Estimat Glomerular Filtration Rate 43 ML/MIN Ammonia 24 MCMOL/L Total Creatine Kinase 105 U/L Troponin I LESS THAN 0.02 NG/ML Thyroid Stimulating Hormone 3rd Gen 0.874 uIU/ML Ethyl Alcohol Level LESS THAN 3 MG/DL [place] Level LESS THAN 0.1 MEQ/L Urine Color YELLOW Urine Turbidity HAZY Urine pH 5.5 Urine Specific [place] 1.025 Urine Protein TRACE mg/dL Urine Glucose (UA) TRACE mg/dL Urine Ketones NEG mg/dL Urine Occult Blood NEG Urine Nitrite NEG Urine Bilirubin NEG Urine Urobilinogen 2.0 MG/DL Urine Leukocyte Esterase LARGE Urine RBC 2 /hpf Urine WBC 7 /hpf Urine Squamous Epithelial Cells 5 /hpf Urine Bacteria RARE /hpf Urine Hyaline Casts 1 /lpf Urine Mucus FEW /lpf Microscopic Urinalysis Comment CATH-CULTURE IND Urine Opiates Screen NEG Urine Barbiturates Screen NEG Urine Amphetamines Screen NEG Urine Benzodiazepines Screen NEG Urine Cocaine Screen NEG Urine Cannabinoids Screen NEG Last Impressions Head CT 11/07/17 1133 Signed Impressions: Service Date/Time: Tuesday, November 07, 2017 12:29 - CONCLUSION: 1. Prior aneurysm clipping within the suprasellar cistern. 2. No acute intracranial abnormality. Luther Keith Jr., MD Chest X-Ray 11/07/17 1133 Signed Impressions: Service Date/Time: Tuesday, November 07, 2017 11:43 - CONCLUSION: The lungs are clear. Luther Nath MD I discussed my concerns with this patient today. Says these episodes occur frequently. I explained to her that this was dangerous and could be deadly. She says that she does live alone and she is unable to read her pill bottles as she is illiterate which is the reason why she has not taken her medications. Case management consulted. Advised that we perform a [id number] evaluation, social work job titles eval for the home. Pt will be discharged. I was assured that social insurance administrator would be evaluating her tomorrow. I do not believe that she is an immediate danger to herself but could be if she does not receive assistance at home. I advised her to return for worsening or persistent symptoms. Diagnosis Primary Impression: Non compliance w medication regimen Additional Impressions: Generalized weakness Right sided weakness Referrals: Neurologist Additional Instructions: Follow up with your primary care physician within 2-3 days. Follow up with a neurologist. Disposition: 01 DISCHARGE HOME Condition: Stable Ana Sinclair Nov 07, 2017 11:37
[2017-11-07 11:51] LABS: BASOPHIL % 0.2 % (0.0-2.0); EOSINOPHIL # 0.2 TH/MM3 (0-0.4); HEMATOCRIT 32.8 % (35.0-46.0); HEMOGLOBIN 11.2 GM/DL (11.6-15.3); LYMPH % 38.1 % (9.0-44.0); LYMPHOCYTE # 2.3 TH/MM3 (1.0-4.8); MEAN CELL VOLUME 88.9 FL (80.0-100.0); MEAN CORPUSCULAR HEMOGLOBIN 30.4 PG (27.0-34.0); MEAN CORPUSCULAR HGB CONC 34.1 % (32.0-36.0); MEAN PLATELET VOLUME 8.8 FL (7.0-11.0); MONO % 8.1 % (0.0-8.0); MONOCYTE # 0.5 TH/MM3 (0-0.9); NEUT % 50.6 % (16.0-70.0); PLATELET COUNT 245 TH/MM3 (150-450); RED BLOOD COUNT 3.69 MIL/MM3 (4.00-5.30); RED CELL DISTRIBUTION WIDTH 12.5 % (11.6-17.2)
--- NOTE | 2017-11-07 12:02 | RADRPT ---
EXAM DATE/TIME: 11/07/2017 11:43 [facility] COMPARISON: CHEST SINGLE AP, May 21, 2015, 15:25. INDICATIONS : Syncope. MEDICAL HISTORY : Hypertension. seizures SURGICAL HISTORY : aneurysm clip ENCOUNTER: Initial ACUITY: 1 day PAIN SCORE: Non-responsive. LOCATION: Bilateral chest FINDINGS: A single view of the chest demonstrates the lungs to be symmetrically aerated without evidence of mas s, infiltrate or effusion. No evidence of pneumothorax. The cardiomediastinal contours are unremark able. Osseous structures are intact. CONCLUSION: The lungs are clear. Luther Nath MD on November 07, 2017 at 11:59 Board Certified Radiologist. This report was verified electronically.
[2017-11-07 12:12] LABS: INTERNATIONAL NORMALIZED RATIO 1.1 RATIO; PROTHROMBIN TIME - PATIENT 11.2 SEC (9.8-11.6)
[2017-11-07 12:21] LABS: ALKALINE PHOSPHATASE 94 U/L (45-117); ALT (GPT) 13 U/L (10-53); TOTAL BILIRUBIN ADULT 0.5 MG/DL (0.2-1.0); TOTAL PROTEIN 7.8 GM/DL (6.4-8.2); TROPONIN I LESS THAN 0.02 NG/ML (0.02-0.05)
[2017-11-07 12:23] LABS: ALBUMIN 3.5 GM/DL (3.4-5.0); AST (GOT) 22 U/L (15-37); BICARBONATE 23.5 MEQ/L (21.0-32.0); BLOOD UREA NITROGEN 20 MG/DL (7-18); CALCIUM 8.3 MG/DL (8.5-10.1); CHLORIDE 107 MEQ/L (98-107); CREATININE 1.26 MG/DL (0.50-1.00); GLOMERULAR FILTRATION RATE 43 ML/MIN (>89); GLUCOSE,RANDOM 116 MG/DL (74-106); SODIUM (NA) 140 MEQ/L (136-145)
--- NOTE | 2017-11-07 12:43 | RADRPT ---
EXAM DATE/TIME: 11/07/2017 12:29 [facility] COMPARISON: CT BRAIN W/O CONTRAST, October 29, 2017, 8:29. INDICATIONS : Altered mental status. RADIATION DOSE: 34.75 CTDIvol (mGy) MEDICAL HISTORY : Cerebrovascular disease. Hypertension. Seizures.Diabetes SURGICAL HISTORY : Craniotomy. ENCOUNTER: Initial ACUITY: 1 day PAIN SCALE: 0/10 LOCATION: cranial TECHNIQUE: Multiple contiguous axial images were obtained of the head. Using automated exposure control and adj ustment of the mA and/or kV according to patient size, radiation dose was kept as low as reasonably a chievable to obtain optimal diagnostic quality images. DICOM format image data is available electro nically for review and comparison. FINDINGS: CEREBRUM: Prior aneurysm clipping involving the suprasellar cistern just to the left of midline. The ventricles are normal for age. No evidence of midline shift, mass lesion, hemorrhage or acute infarction. No extra-axial fluid collections are seen. POSTERIOR FOSSA: The cerebellum and brainstem are intact. The 4th ventricle is midline. The cerebellopontine angle i s unremarkable. EXTRACRANIAL: Prior left temporal craniotomy. The visualized portion of the orbits is intact. SKULL: The calvaria is intact. No evidence of skull fracture. CONCLUSION: 1. Prior aneurysm clipping within the suprasellar cistern. 2. No acute intracranial abnormality. Luther Keith Jr., MD on November 07, 2017 at 12:37 Board Certified Radiologist. This report was verified electronically.
[2017-11-07 13:20] VITALS: BP 115/83; PULSE 67; RESP 16; O2SAT 99
[2017-11-07 14:04] LABS: BACTERIA, URINE RARE /hpf; BILIRUBIN, URINE NEG (NEG); BLOOD, URINE NEG (NEG); GLUCOSE,URINE TRACE mg/dL (NEG); HYALINE CAST, URINE 1 /lpf (RARE); KETONE, URINE NEG (NEG); MUCUS URINE FEW /lpf (OCC); NITRITE,URINE NEG (NEG); PH, URINE 5.5 (5.0-8.5); SQUAMOUS EPITHELIAL CELL URINE 5 /hpf (0-5); URINE COLOR YELLOW (YELLW/STRAW); URINE LEUKOCYTE ESTERASE LARGE (NEG)
--- NOTE | 2017-11-07 22:43 | EKG ---
Date Performed: 11/07/2017 Time Performed: 11:34:52 PTAGE: 67 years EKG: Sinus rhythm NONSPECIFIC T-WAVE ABNORMALITY BORDERLINE ECG PREVIOUS TRACING : 10/29/2017 08.01 DOCTOR: Jozef Sierra Interpretating Date/Time 11/07/2017 22:42:51
== END 2017-11-07 16:32 | disposition home or self-care (01) ==
LOC: NEPC 11:19
DX: G40.909 Epilepsy, unspecified, not intractable, without status epilepticus (principal); R53.1 Weakness; R94.31 Abnormal electrocardiogram [ECG] [EKG]; F31.9 Bipolar disorder, unspecified; E11.9 Type 2 diabetes mellitus without complications; I10 Essential (primary) hypertension; Z86.73 Personal history of transient ischemic attack (TIA), and cerebral infarction without residual deficits; Z91.14 Patient's other noncompliance with medication regimen; Z79.899 Other long term (current) drug therapy
CPT/HCPCS: 70450; 71045; 80053; 80178; 80307; 81001; 82140; 82550; 84443; 84484; 85025; 85610; 87086; 93005; 99285

== ENCOUNTER 2017-12-15 10:39 | Emergency (ER) | payer OTHER ==
[~2017-12-15] VITALS: Ht 162.6 cm; Wt 70.0 kg
[2017-12-15 10:40] VITALS: BP 165/83; PULSE 80; RESP 16; TEMP 98.4; O2SAT 99
[2017-12-15] MEDS ORDERED: diphenhydrAMINE HCL 50 MG/ML VIAL IV PUSH ONE (11:00)
[2017-12-15] MEDS ORDERED: PROCHLORPERAZINE INJ 10 MG/2 ML VIAL IV PUSH ONE (11:00)
--- NOTE | 2017-12-15 12:51 | PD ---
HPI . Headache Chief Complaint: Headache Time Seen by Provider: 10:49 Travel History International Travel<30 days: No Contact w/Intl Traveler<30days: No Traveled to known affect area: No History of Present Illness HPI This patient presents with a chief complaint of an acute headache. Onset today. It is global. Rated 9/10. No modifying factors. PFSH Past Medical History Bipolar Disorder: Yes Cancer: No Cardiovascular Problems: Yes Cerebrovascular Accident: Yes Diabetes: Yes Diminished Hearing: No Gastrointestinal Disorders: No Genitourinary: No Headaches: Yes Hypertension: Yes Musculoskeletal: No Neurologic: Yes Psychiatric: Yes Reproductive: No Respiratory: No Immunizations Current: Yes (unknown) Migraines: Yes Seizures: Yes ?: Not : 7 Para: 3 Miscarriage: 4 Tubal Ligation: Yes Past Surgical History Neurologic Surgery: Yes (BACK SURGERY; ANEURSYM REPAIR) Tonsillectomy: Yes Other Surgery: Yes (SPINAL SURGERY, CYST REMOVED FROM CHIN, BRAIN CLIPS) Social History Alcohol Use: No Tobacco Use: No Substance Use: No Allergies-Medications (Allergen,Severity, Reaction): Coded Allergies: aspirin (Verified Allergy, Unknown, 12/15/17) diclofenac (Verified Allergy, Unknown, Rash, 12/15/17) etodolac (Verified Allergy, Unknown, Rash, 12/15/17) flurbiprofen (Verified Allergy, Unknown, Rash, 12/15/17) ibuprofen (Verified Allergy, Unknown, Rash, 12/15/17) indomethacin (Verified Allergy, Unknown, Rash, 12/15/17) ketoprofen (Verified Allergy, Unknown, Rash, 12/15/17) ketorolac (Verified Allergy, Unknown, Rash, 12/15/17) naproxen (Verified Allergy, Unknown, Rash, 12/15/17) oxaprozin (Verified Allergy, Unknown, Rash, 12/15/17) MRI PRECAUTION (Verified Adverse Reaction, Severe, ANEURYSM CLIPS IN BRAIN , 12/15/17) 08/10/15 JLA Reported Meds & Prescriptions Reported Meds & Active Scripts Active Cipro (Ciprofloxacin HCl) 500 Mg Tab 500 Mg PO BID 7 Days Reported Seroquel (Quetiapine Fumarate) 50 Mg Tab 50 Mg PO DIRECTED [place] Carbonate 300 Mg Cap 300 Mg PO DAILY Hydrocodone-Acetaminophen 5-325 mg Tab 1 Tab PO Q6H PRN Lipitor (Atorvastatin Calcium) 20 Mg Tab 20 Mg PO HS [Diabetes Medication] Mg PO DAILY Lisinopril 20 Mg Tab 20 Mg PO Q12HR Keppra (Levetiracetam) 500 Mg Tab 500 Mg PO BID Clonidine (Clonidine HCl) 0.1 Mg Tab 0.1 Mg PO BID Review of Systems Except as stated in HPI: all other systems reviewed are Neg Physical Exam Narrative GENERAL: Awake and alert and in no acute distress. SKIN: Warm and dry. HEAD: Normocephalic/atraumatic. Positive scalp tenderness. EYES: Pupils are equal. Extraocular movements are intact. NECK: Normal range of motion. CARDIOVASCULAR: Regular rate and rhythm. RESPIRATORY: Nonlabored respirations. MUSCULOSKELETAL: Atraumatic. NEUROLOGICAL: A and O 3. Critical Care Technician strengths are full and equal. Finger-nose- finger exam is intact. Speech is normal. PSYCHIATRIC: Appropriate mood and affect. Data Data Last Documented VS Vital Signs Date Time Temp Pulse Resp B/P (MAP) Pulse Ox O2 Delivery O2 Flow Rate FiO2 12/15/17 10:40 Room Air 12/15/17 10:40 98.4 80 16 165/83 (110) 99 Orders Orders ^ Saline Lock (12/15/17 10:49) Diphenhydramine Inj (Benadryl Inj) (12/15/17 11:00) Prochlorperazine Inj (Compazine Inj) (12/15/17 11:00) Ed Discharge Order (12/15/17 12:20) MDM Medical Decision Making Medical Screen Exam Complete: Yes Emergency Medical Condition: Yes Differential Diagnosis Differential diagnosis of headache includes but is not limited to migraine, muscle contraction headache, brain tumor, brain bleed Narrative Course This patient presents for a headache. Her headache has been treated with Compazine and Benadryl with good relief. She has no focal neurological findings and no evidence of meningitis such as fever or stiff neck. She will be discharged home. Diagnosis Primary Impression: Headache Qualified Codes: G44.209 - Tension-type headache, unspecified, not intractable Patient Instructions: General Instructions Departure Forms: Tests/Procedures Disposition: 01 DISCHARGE HOME Condition: Stable Oksana Daugherty MD Dec 15, 2017 12:51
== END 2017-12-15 13:13 | disposition home or self-care (01) ==
LOC: NEDAMB 10:39
DX: R51 Headache (principal); F31.9 Bipolar disorder, unspecified; E11.9 Type 2 diabetes mellitus without complications; I10 Essential (primary) hypertension; R56.9 Unspecified convulsions; Z79.899 Other long term (current) drug therapy; Z88.6 Allergy status to analgesic agent; Z88.8 Allergy status to other drugs, medicaments and biological substances; Z86.73 Personal history of transient ischemic attack (TIA), and cerebral infarction without residual deficits
CPT/HCPCS: 96374; 96375; 99284; J0780; J1200

== ENCOUNTER 2018-02-07 10:27 | Emergency (ER) | payer MEDICARE, OTHER ==
[2018-02-07 10:32] VITALS: BP 174/96; PULSE 85; RESP 22; TEMP 98.1
[2018-02-07] MEDS ORDERED: SODIUM CHLOR 0.9% 1000 ML INJ 1,000 ML IV SCH (10:39)
[2018-02-07] MEDS ORDERED: SODIUM CHLORIDE 0.9% FLUSH 10 ML FLUSH IV FLUSH PRN (10:45)
--- NOTE | 2018-02-07 10:46 | PD ---
HPI Chief Complaint: Altered Mental Status Time Seen by Provider: 10:39 Travel History International Travel<30 days: No Contact w/Intl Traveler<30days: No Traveled to known affect area: No History of Present Illness HPI Patient is a 67-year-old female with history of seizures, presents to the emergency room for evaluation of altered mental status. As per EMS, patient was at a community center today and was sitting down for an activity. Reports that she was found slumped over in a chair. Reports that patient was acting like her normal self, reports that she appears more confused at this time. Bystanders were unsure if patient had a seizure. Patient reports that at this time, she feels dizzy, reports that in addition to dizziness, she has been feeling nauseous, reports that she did vomit last night. Patient with no abdominal pain at this time. Patient denies any vision changes, denies headache. Patient denies any falls, denies any chest pain or shortness of breath. Patient is alert only to person, she thinks that it is 1995 and is unsure who the president is. Blood sugar was 198 by EMS. Patient with no incontinence of urine PFSH Past Medical History Bipolar Disorder: Yes Cancer: No Cardiovascular Problems: Yes Cerebrovascular Accident: Yes Diabetes: Yes Patient Takes Glucophage: Yes Diminished Hearing: No Gastrointestinal Disorders: No Genitourinary: No Headaches: Yes Hypertension: Yes Musculoskeletal: No Neurologic: Yes Psychiatric: Yes Reproductive: No Respiratory: No Immunizations Current: Yes (unknown) Migraines: Yes Seizures: Yes ?: Not : 7 Para: 3 Miscarriage: 4 Tubal Ligation: Yes Past Surgical History Neurologic Surgery: Yes (BACK SURGERY; ANEURSYM REPAIR) Tonsillectomy: Yes Other Surgery: Yes (SPINAL SURGERY, CYST REMOVED FROM CHIN, BRAIN CLIPS) Social History Alcohol Use: No Tobacco Use: No Substance Use: No Allergies-Medications (Allergen,Severity, Reaction): Coded Allergies: aspirin (Verified Allergy, Unknown, 02/07/18) diclofenac (Verified Allergy, Unknown, Rash, 02/07/18) etodolac (Verified Allergy, Unknown, Rash, 02/07/18) flurbiprofen (Verified Allergy, Unknown, Rash, 02/07/18) ibuprofen (Verified Allergy, Unknown, Rash, 02/07/18) indomethacin (Verified Allergy, Unknown, Rash, 02/07/18) ketoprofen (Verified Allergy, Unknown, Rash, 02/07/18) ketorolac (Verified Allergy, Unknown, Rash, 02/07/18) naproxen (Verified Allergy, Unknown, Rash, 02/07/18) oxaprozin (Verified Allergy, Unknown, Rash, 02/07/18) MRI PRECAUTION (Verified Adverse Reaction, Severe, ANEURYSM CLIPS IN BRAIN , 02/07/18) 08/10/15 JLA Reported Meds & Prescriptions Reported Meds & Active Scripts Active Macrobid (Nitrofurantoin Monoh/Nitrofur Macro) 100 Mg Cap 100 Mg PO BID 10 Days Cipro (Ciprofloxacin HCl) 500 Mg Tab 500 Mg PO BID 7 Days Reported Seroquel (Quetiapine Fumarate) 50 Mg Tab 50 Mg PO DIRECTED [place] Carbonate 300 Mg Cap 300 Mg PO DAILY Hydrocodone-Acetaminophen 5-325 mg Tab 1 Tab PO Q6H PRN Lipitor (Atorvastatin Calcium) 20 Mg Tab 20 Mg PO HS [Diabetes Medication] Mg PO DAILY Lisinopril 20 Mg Tab 20 Mg PO Q12HR Keppra (Levetiracetam) 500 Mg Tab 500 Mg PO BID Clonidine (Clonidine HCl) 0.1 Mg Tab 0.1 Mg PO BID Review of Systems ROS Limitations: Altered Mental Status General / Constitutional: No: Fever Eyes: No: Visual changes HENT: No: Headaches Cardiovascular: No: Chest Pain or Discomfort Respiratory: No: Shortness of Breath Gastrointestinal: No: Abdominal Pain Genitourinary: No: Dysuria Musculoskeletal: No: Pain Skin: No Rash Neurologic: Positive: Dizziness, No: Weakness Psychiatric: No: Depression Endocrine: No: Polydipsia Hematologic/Lymphatic: No: Easy Bruising Physical Exam Narrative GENERAL: Moderate distress, patient confused, alert only to person SKIN: Focused skin assessment warm/dry. HEAD: Atraumatic. Normocephalic. EYES: Pupils equal and round. No scleral icterus. No injection or drainage. ENT: No nasal bleeding or discharge. Mucous membranes pink and moist. NECK: Trachea midline. No JVD. CARDIOVASCULAR: Regular rate and rhythm. No murmur appreciated. RESPIRATORY: No accessory muscle use. Clear to auscultation. Breath sounds equal bilaterally. GASTROINTESTINAL: Abdomen soft, non-tender, nondistended. Hepatic and splenic margins not palpable. MUSCULOSKELETAL: No obvious deformities. No clubbing. No cyanosis. No edema. NEUROLOGICAL: Awake and alert. No obvious cranial nerve deficits. Motor grossly within normal limits. Normal speech. PSYCHIATRIC: Flat mood and affect Data Data Last Documented VS Vital Signs Date Time Temp Pulse Resp B/P (MAP) Pulse Ox O2 Delivery O2 Flow Rate FiO2 02/07/18 12:13 73 17 186/90 (122) 99 Room Air 02/07/18 10:32 98.1 Orders Orders Electrocardiogram (02/07/18 10:39) Ammonia (02/07/18 10:39) Complete Blood Count With Diff (02/07/18 10:39) Comprehensive Metabolic Panel (02/07/18 10:39) Creatine Kinase (Cpk) (02/07/18 10:39) Prothrombin Time / Inr (Pt) (02/07/18 10:39) Act Partial Throm Time (Ptt) (02/07/18 10:39) Troponin I (02/07/18 10:39) Urinalysis - C+S If Indicated (02/07/18 10:39) Chest, Single Ap (02/07/18 10:39) Ct Brain W/O Iv Contrast(Rout) (02/07/18 10:39) Blood Glucose (02/07/18 10:39) Ecg Monitoring (02/07/18 10:39) Iv Access Insert/Monitor (02/07/18 10:39) Oximetry (02/07/18 10:39) Sodium Chloride 0.9% Flush (Ns Flush) (02/07/18 10:45) Sodium Chlor 0.9% 1000 Ml Inj (Ns 1000 M (02/07/18 10:39) Drug Screen, Random Urine (02/07/18 10:39) Lipase (02/07/18 10:39) Valproic Acid (Depakene) (02/07/18 10:40) [place] (Li) (02/07/18 10:40) Urine Culture (02/07/18 11:28) Ceftriaxone Inj (Rocephin Inj) (02/07/18 13:45) Labs Laboratory Tests Test 02/07/18 10:47 02/07/18 10:49 02/07/18 10:56 02/07/18 11:15 Prothrombin Time 10.4 SEC Prothromb Time International Ratio 1.0 RATIO Activated Partial Thromboplast Time 27.5 SEC Blood Urea Nitrogen 17 MG/DL Creatinine 1.17 MG/DL Random Glucose 151 MG/DL Total Protein 8.5 GM/DL Albumin 4.1 GM/DL Calcium Level 8.8 MG/DL Alkaline Phosphatase 128 U/L Aspartate Amino Transf (AST/SGOT) 22 U/L Alanine Aminotransferase (ALT/SGPT) 22 U/L Total Bilirubin 0.5 MG/DL Sodium Level 140 MEQ/L Potassium Level 4.0 MEQ/L Chloride Level 104 MEQ/L Carbon Dioxide Level 28.0 MEQ/L Anion Gap 8 MEQ/L Estimat Glomerular Filtration Rate 46 ML/MIN Total Creatine Kinase 60 U/L Troponin I LESS THAN 0.02 NG/ML Lipase 221 U/L White Blood Count 6.6 TH/MM3 Red Blood Count 3.93 MIL/MM3 Hemoglobin 11.8 GM/DL Hematocrit 34.6 % Mean Corpuscular Volume 88.0 FL Mean Corpuscular Hemoglobin 30.0 PG Mean Corpuscular Hemoglobin Concent 34.0 % Red Cell Distribution Width 13.2 % Platelet Count 278 TH/MM3 Mean Platelet Volume 8.8 FL Neutrophils (%) (Auto) 44.4 % Lymphocytes (%) (Auto) 42.6 % Monocytes (%) (Auto) 6.5 % Eosinophils (%) (Auto) 4.6 % Basophils (%) (Auto) 1.9 % Neutrophils # (Auto) 2.9 TH/MM3 Lymphocytes # (Auto) 2.8 TH/MM3 Monocytes # (Auto) 0.4 TH/MM3 Eosinophils # (Auto) 0.3 TH/MM3 Basophils # (Auto) 0.1 TH/MM3 CBC Comment DIFF FINAL Differential Comment Ammonia 15 MCMOL/L [place] Level 0.5 MEQ/L Test 02/07/18 11:28 Urine Color YELLOW Urine Turbidity CLEAR Urine pH 7.0 Urine Specific [place] 1.009 Urine Protein NEG mg/dL Urine Glucose (UA) 100 mg/dL Urine Ketones NEG mg/dL Urine Occult Blood TRACE Urine Nitrite NEG Urine Bilirubin NEG Urine Urobilinogen 0.2 MG/DL Urine Leukocyte Esterase LARGE Urine RBC LESS THAN 1 /hpf Urine WBC 5 /hpf Urine Squamous Epithelial Cells 1 /hpf Urine Transitional Epithelial Cells <1 /hpf Urine Bacteria RARE /hpf Microscopic Urinalysis Comment CATH-CULTURE IND Urine Opiates Screen NEG Urine Barbiturates Screen NEG Urine Amphetamines Screen NEG Urine Benzodiazepines Screen NEG Urine Cocaine Screen NEG Urine Cannabinoids Screen NEG MDM Medical Decision Making Medical Screen Exam Complete: Yes Emergency Medical Condition: Yes Medical Record Reviewed: Yes Interpretation(s) Vital Signs Date Time Temp Pulse Resp B/P (MAP) Pulse Ox O2 Delivery O2 Flow Rate FiO2 02/07/18 10:32 98.1 85 22 174/96 (122) Differential Diagnosis Seizure episode, CVA, intracranial hemorrhage, ACS, electrolyte abnormality, bipolar disorder Narrative Course Patient is a 67-year-old female who presents the emergency room for evaluation of altered mental status. Patient was at a [facility] today, patient had an episode where she became unresponsive and was slumped over. Patient is confused at this time, alert only to person, she does have history of seizures, unsure if patient had a seizure today. Patient with no neurological deficit this time, patient will require workup for possible syncope episode versus seizure episode.. During the course of the patients emergency department visit, the patients history, examination, and differential diagnosis were reviewed with the patient. The patient was placed on a cardiac technician with oximetry and frequent blood pressure monitoring. The patient had an IV access obtained and blood work sent for analysis. The patients laboratory studies were reviewed and remarkable for CBC & BMP Diagram 02/07/18 10:47 Total Protein 8.5 H, Albumin 4.1, Calcium Level 8.8, Alkaline Phosphatase 128 H , Aspartate Amino Transf (AST/SGOT) 22, Alanine Aminotransferase (ALT/SGPT) 22, Total Bilirubin 0.5 02/07/18 10:49 Radiology studies were reviewed and remarkable for Last Impressions Head CT 02/07/18 1039 Signed Impressions: CONCLUSION: Chest X-Ray 02/07/18 1039 Signed Impressions: CONCLUSION: No acute pulmonary infiltrates. Stable exam. Chest xray: no acute pulmonary infiltrates, UA positive for large leuk esterase, 100 glucose, 5 white blood cells, rare bacteria, patient was given 1 g Rocephin, she will discharged home with a prescription for Macrobid. Case management reviewed patient's case for dispo planning - patient doesn't meet any requirements for admission to hospital or for assisted living- she will need to be ultimately discharged to home. Patient alert and oriented and back to her baseline mental status at this time. Diagnosis Primary Impression: Seizure Additional Impressions: UTI (urinary tract infection) Qualified Codes: N30.00 - Acute cystitis without hematuria Generalized weakness Patient Instructions: General Instructions Additional Instructions: Please provide patient with a copy of their lab work and studies at discharge* * Please follow up with your primary care doctor in 2-3 days Return to the ER if symptoms worsen or progress Return to the ER as needed Please take all antibiotics as prescribed Med/Other Pt SpecificInfo: Prescription(s) given Scripts Nitrofurantoin Monohydrate Macrocrystals (Macrobid) 100 Mg Cap 100 MG PO BID for Infection for 10 Days, #20 CAP 0 Refills Prov: Shira Turner DO 02/07/18 Disposition: 01 DISCHARGE HOME Condition: Stable Shira Turner DO February 07, 2018 10:46
--- NOTE | 2018-02-07 11:10 | RADRPT ---
EXAM DATE: 02/07/2018 11:06 AM EDT AGE/SEX: 67 years / Female INDICATIONS: Shortness of breath. CLINICAL DATA: This is the patient's initial encounter. Patient reports that signs and symptoms have been present for 1 day and indicates a pain score of 0/10. MEDICAL/SURGICAL HISTORY: Diabetes mellitus type II. Hypertension. None. COMPARISON: [facility] [place], CHEST SINGLE AP, 11/07/2017. . FINDINGS: A single AP view of the chest demonstrates the lungs to be symmetrically aerated without e vidence of mass, infiltrate or effusion. The cardiomediastinal contours are unremarkable. Osseous s tructures are intact. CONCLUSION: No acute pulmonary infiltrates. Stable exam. Electronically signed by: Rian Magdaleno MD 02/07/2018 11:08 AM EDT
[2018-02-07 11:12] LABS: AUTOMATED NEUTROPHIL # 2.9 TH/MM3 (1.8-7.7); BASOPHIL # 0.1 TH/MM3 (0-0.2); BASOPHIL % 1.9 % (0.0-2.0); EOSINOPHIL # 0.3 TH/MM3 (0-0.4); EOSINOPHIL % 4.6 % (0.0-4.0); HEMATOCRIT 34.6 % (35.0-46.0); HEMOGLOBIN 11.8 GM/DL (11.6-15.3); LYMPH % 42.6 % (9.0-44.0); LYMPHOCYTE # 2.8 TH/MM3 (1.0-4.8); MEAN PLATELET VOLUME 8.8 FL (7.0-11.0); MONO % 6.5 % (0.0-8.0); MONOCYTE # 0.4 TH/MM3 (0-0.9); NEUT % 44.4 % (16.0-70.0); PLATELET COUNT 278 TH/MM3 (150-450); RED BLOOD COUNT 3.93 MIL/MM3 (4.00-5.30); RED CELL DISTRIBUTION WIDTH 13.2 % (11.6-17.2); WHITE BLOOD COUNT 6.6 TH/MM3 (4.0-11.0)
[2018-02-07 11:19] LABS: PROTHROMBIN TIME - PATIENT 10.4 SEC (9.8-11.6)
[2018-02-07 11:44] LABS: ALBUMIN 4.1 GM/DL (3.4-5.0); ALT (GPT) 22 U/L (10-53); AST (GOT) 22 U/L (15-37); BLOOD UREA NITROGEN 17 MG/DL (7-18); CALCIUM 8.8 MG/DL (8.5-10.1); CHLORIDE 104 MEQ/L (98-107); CREATININE 1.17 MG/DL (0.50-1.00); GLOMERULAR FILTRATION RATE 46 ML/MIN (>89); GLUCOSE,RANDOM 151 MG/DL (74-106); SODIUM (NA) 140 MEQ/L (136-145)
[2018-02-07 11:48] LABS: ALKALINE PHOSPHATASE 128 U/L (45-117); TOTAL BILIRUBIN ADULT 0.5 MG/DL (0.2-1.0); TOTAL PROTEIN 8.5 GM/DL (6.4-8.2); TROPONIN I LESS THAN 0.02 NG/ML (0.02-0.05)
--- NOTE | 2018-02-07 12:04 | RADRPT ---
EXAM DATE: 02/07/2018 12:00 PM EDT AGE/SEX: 67 years / Female INDICATIONS: Altered mental status CLINICAL DATA: This is the patient's initial encounter. Patient reports that signs and symptoms have been present for 1 day and indicates a pain score of 0/10. MEDICAL/SURGICAL HISTORY: Cerebrovascular disease. Hypertension. Diabetes. seizures Tubal ligat ion. RADIATION DOSE: 34.90 CTDI (mGy) COMPARISON: [facility] [place], CT BRAIN W/O CONTRAST, 11/07/2017. . TECHNIQUE: CT of the head without contrast. Using automated exposure control and adjustment of the mA and/or kV according to patient size, radiation dose was kept as low as reasonably achievable to ob tain optimal diagnostic quality images. FINDINGS: There is prior aneurysm clipping in the left suprasellar region. Previous left craniotomy. No acute intracranial hemorrhage, mass effect or midline shift. No hydrocephalus. No abnormal extra- axial fluid or hemorrhage. CONCLUSION: 1. No acute findings. Previous aneurysm clipping on the left. Electronically signed by: Wilmer Holloway MD 02/07/2018 12:03 PM EDT
[2018-02-07 12:13] VITALS: BP 186/90; PULSE 73; RESP 17; O2SAT 99
[2018-02-07 12:17] LABS: BILIRUBIN, URINE NEG (NEG); GLUCOSE,URINE 100 mg/dL (NEG); KETONE, URINE NEG (NEG); NITRITE,URINE NEG (NEG); URINE COLOR YELLOW (YELLW/STRAW); URINE LEUKOCYTE ESTERASE LARGE (NEG)
[2018-02-07 12:28] LABS: BACTERIA, URINE RARE /hpf; SQUAMOUS EPITHELIAL CELL URINE 1 /hpf (0-5); TRANSITIONAL EPI CELLS, URINE <1 /hpf
[2018-02-07 12:29] LABS: BLOOD, URINE TRACE (NEG)
[2018-02-07] MEDS ORDERED: MACR100C2 PO (13:38)
[2018-02-07] MEDS ORDERED: cefTRIAXone INJ 1,000 MG in SODIUM CHLORIDE 0.9% INJ 100 ML IV ONE (13:45)
--- NOTE | 2018-02-07 13:53 | HHI.FF ---
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 My clinical findings support the need for the requested home health care services because: Limited ability to care for self I certify that my clinical findings support that this patient is homebound because: Need for psychosocial assistance Shira Turner DO February 07, 2018 13:53
--- NOTE | 2018-02-07 14:04 | EKG ---
Date Performed: 02/07/2018 Time Performed: 11:14:14 PTAGE: 67 years EKG: Sinus rhythm NONSPECIFIC T-WAVE ABNORMALITY BORDERLINE ECG No significant change from prior electrocardiogram. PREVIOUS TRACING : 11/07/2017 11.34 DOCTOR: Aguilar Young Interpretating Date/Time 02/07/2018 14:03:33
[2018-02-07 16:15] VITALS: BP 201/91; PULSE 67; RESP 22; O2SAT 100
--- NOTE | 2018-02-07 16:48 | HHI.FF ---
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 My clinical findings support the need for the requested home health care services because: Deconditioned w/ increased weakness I certify that my clinical findings support that this patient is homebound because: Need for psychosocial assistance Shira Turner DO February 07, 2018 16:48
== END 2018-02-07 18:17 | disposition home or self-care (01) ==
LOC: NEPE 10:27 → NEDAMB 18:17
DX: R56.9 Unspecified convulsions (principal); N30.00 Acute cystitis without hematuria; E11.9 Type 2 diabetes mellitus without complications; I10 Essential (primary) hypertension; F31.9 Bipolar disorder, unspecified; R94.31 Abnormal electrocardiogram [ECG] [EKG]; Z79.84 Long term (current) use of oral hypoglycemic drugs; Z79.899 Other long term (current) drug therapy
CPT/HCPCS: 70450; 71045; 80053; 80164; 80178; 80307; 81001; 82140; 82550; 83690; 84484; 85025; 85610; 85730; 87086; 93005; 96361; 96365; 99285; J0696; J7030